=== PATIENT | female | born 1970 | race Caucasian/White ===

== ENCOUNTER 2018-07-16 14:07 | Emergency (ER) | payer OTHER ==
[2018-07-16 14:22] VITALS: BP 139/83; PULSE 78; TEMP 99.5; BMI 19.1
[2018-07-16] MEDS ORDERED: SODIUM CHLORIDE 0.9% 1000 ML INFUS.BAG IV ONE (14:34)
--- NOTE | 2018-07-16 14:51 | PDOC ---
History of Present Illness - General Chief Complaint: Pain, Acute Stated Complaint: PCP SENT Time Seen by Provider: 07/16/18 14:34 History Source: Patient Exam Limitations: No Limitations - History of Present Illness Initial Comments: 07/16/18 14:44 This is a 48 YOF with h/o right ovarian cyst, anxiety, and prior anorexia (has maintained healthy weight for many years) who p/w non-radiating 8/10 lower RLQ pressure/sharp pain, urinary urgency, low-grade fever, and night sweats worsening over the past 2 months. She notes seeing Dr. Chong a week ago and having a UA which did show some bacteria, and she was treated with ciprofloxacin without relief. She notes that the pain worsened significantly today and Dr. Chong instructed her to come into the ED for evaluation, CT abdomen/pelvis, and r/o appendicitis. The patient denies any recent chills, nausea, vomiting, diarrhea, constipation, black/bloody/white stool, headache, vertigo, lightheadedness, chest pain, SOB, back pain, leg pain, burning on urination, vaginal bleeding, or other symptoms. She is having her menstrual period and this is nothing like menstrual cramps. Past History - Past Medical History Allergies/Adverse Reactions: Allergies Allergy/AdvReac Type Severity Reaction Status Date / Time No Known Allergies Allergy Verified 07/16/18 14:29 Home Medications: Ambulatory Orders Aspirin 81 mg PO DAILY 07/16/18 Atorvastatin Ca [Lipitor] 20 mg PO HS 07/16/18 Fluoxetine HCl [Prozac] 40 mg PO DAILY 07/16/18 Lamotrigine [Lamictal] 125 mg PO DAILY 07/16/18 levoFLOXacin [Levaquin] 750 mg PO DAILY #7 tab 07/16/18 metroNIDAZOLE [Flagyl -] 500 mg PO TID #21 tablet 07/16/18 COPD: No - Immunization History Immunization Up to Date: Yes - Suicide/Smoking/Psychosocial Hx Smoking History: Never smoked Hx Alcohol Use: Yes Drug/Substance Use Hx: No Review of Systems - Review of Systems Able to Perform ROS?: Yes Constitutional: Yes: Fever (low-grade), Night Sweats. No: Chills, Unexplained wgt Loss HEENTM: No: Nose Congestion, Throat Pain Respiratory: No: Cough, Shortness of Breath Cardiac (ROS): No: Chest Pain, Palpitations ABD/GI: Yes: Other (right lower abdominal pain). No: Constipated, Diarrhea, Nausea, Vomiting : No: Burning, Dysuria Musculoskeletal: No: Back Pain, Neck Pain Integumentary: No: Bruising, Rash Neurological: No: Headache, Numbness, Tingling, Weakness, Dizziness Endocrine: No: Unexplained Weight Gain, Unexplained Weight Loss *Physical Exam - Vital Signs Last Vital Signs Temp Pulse Resp BP Pulse Ox 99.5 F 78 18 139/83 89 L 07/16/18 14:11 07/16/18 14:11 07/16/18 14:11 07/16/18 14:11 07/16/18 14:11 ED Treatment Course - LABORATORY CBC & Chemistry Diagram: 07/16/18 15:10 07/16/18 15:10 Medical Decision Making - Medical Decision Making 07/16/18 14:54 Adult female Pt p/w RLQ pain. Initial Vital Signs Temp Pulse Resp BP Pulse Ox 99.5 F 78 18 139/83 89 L 07/16/18 14:11 07/16/18 14:11 07/16/18 14:11 07/16/18 14:11 07/16/18 14:11 Exam: As noted in Physical Exam section. DDX IBNLT: ovarian cyst, ovarian torsion, appendicitis, UTI/pyelonephritis, renal colic, salpingitis, oophoritis, PID, TOA, endometritis, Zljp-Klqg-Rilwrb syndrome (if involving liver capsule ACS, AAA/AD, malignancy, hernia, cholecystitis, pancreatitis, gastritis, PUD, diverticulitis wwo abscess or perforation, colitis, regional ileitis (Crohns disease), SBO, bowel ischemia, bowel perforation, constipation, musculoskeletal, primary dysmenorrhea, endometriosis, fibroids, etc. 07/16/18 14:54 CT abdomen/pelvis with PO contrast, TVUS, labs as noted below TX ordered: IVF Laboratory Tests 07/16/18 07/16/18 07/16/18 15:10 15:10 15:10 WBC 10.3 H RBC 4.49 Hgb 13.6 Hct 40.0 MCV 89.1 MCH 30.2 MCHC 33.9 RDW 13.9 Plt Count 352 MPV 7.3 L Absolute Neuts (auto) 6.8 Neutrophils % 65.7 Lymphocytes % 24.0 Monocytes % 7.6 Eosinophils % 2.1 Basophils % 0.6 Nucleated RBC % 0 Sodium 140 Potassium 4.0 Chloride 110 H Carbon Dioxide 24 Anion Gap 7 L BUN 9 Creatinine 0.7 Creat Clearance w eGFR > 60 Random Glucose 85 Calcium 9.0 Total Bilirubin 0.3 AST 26 ALT 27 Alkaline Phosphatase 53 Total Protein 6.4 Albumin 3.4 Lipase 227 Urine Color Azra Urine Appearance Clear Urine pH 5.0 Ur Specific [place] 1.015 Urine Protein Negative Urine Glucose (UA) Negative Urine Ketones Negative Urine Blood Negative Urine Nitrite Positive Urine Bilirubin Negative Urine Urobilinogen 4.0 e.u/dl H Ur Leukocyte Esterase Negative Urine WBC (Auto) <1 Urine RBC (Auto) 1 Ur Epithelial Cells Few Urine Mucus Rare 07/16/18 15:38 WBC RBC Hgb Hct MCV MCH MCHC RDW Plt Count MPV Absolute Neuts (auto) Neutrophils % Lymphocytes % Monocytes % Eosinophils % Basophils % Nucleated RBC % Sodium Potassium Chloride Carbon Dioxide Anion Gap BUN Creatinine Creat Clearance w eGFR Random Glucose Calcium Total Bilirubin AST ALT Alkaline Phosphatase Total Protein Albumin Lipase Cancelled Urine Color Urine Appearance Urine pH Ur Specific [place] Urine Protein Urine Glucose (UA) Urine Ketones Urine Blood Urine Nitrite Urine Bilirubin Urine Urobilinogen Ur Leukocyte Esterase Urine WBC (Auto) Urine RBC (Auto) Ur Epithelial Cells Urine Mucus Reassessment: Patient states feeling a bit better, repeat exam benign. Repeat VS: 07/16/18 19:00 This patient has gotten significant relief of symptoms while in the ED. On last reassessment, vitals are wnl, pain is reasonably controlled, and exam is benign. Workup is not concerning for emergency-level pathology at this time. This patient is appropriate for discharge with close outpatient follow up. The Pt is comfortable with this plan and will follow up with their primary care provider in 1-3 days. She will take Motrin and/or Tylenol for pain. Specific return precautions are discussed and they will come back to the ER if necessary. *DC/Admit/Observation/Transfer Diagnosis at time of Disposition: Colitis Ovarian cyst Qualifiers: Laterality: right Qualified Code(s): N83.201 - Unspecified ovarian cyst, right side Abdominal pain Qualifiers: Abdominal location: right lower quadrant Qualified Code(s): R10.31 - Right lower quadrant pain - Discharge Dispostion Disposition: HOME Condition at time of disposition: Stable Decision to Admit order: No - Prescriptions Prescriptions: levoFLOXacin [Levaquin] 750 mg PO DAILY #7 tab metroNIDAZOLE [Flagyl -] 500 mg PO TID #21 tablet - Referrals Referrals: Rojas Chong MD [Primary Care Provider] - - Patient Instructions Additional Instructions: YOU WERE SEEN IN THE ER FOR ABDOMINAL PAIN. WE DID AN EXAM, LABS, AN ULTRASOUND , AND A CT SCAN, AND WE FOUND EVIDENCE OF AN OVARIAN CYST AND OF COLON INFLAMMATION AFTER OUR ASSESSMENT, WE DO NOT BELIEVE YOU ARE HAVING A MEDICAL EMERGENCY AT THIS TIME, AND WE BELIEVE YOU ARE SAFE TO GO HOME. PLEASE FOLLOW UP WITH YOUR REGULAR PCP IN 1-3 DAYS. CALL THEIR CLINIC, TELL THEM YOU WERE SEEN IN THE ER, AND TELL THEM YOU NEED A FOLLOW-UP. IF YOU HAVE ANY NEW OR WORSENING SYMPTOMS, ESPECIALLY FEVER, WORSENING PAIN, RECTAL BLEEDING, ABDOMINAL DISTENTION, ETC, PLEASE COME BACK TO THE ER AT ANY TIME (24 HOURS A DAY). IF YOU ARE HAVING SEVERE OR LIFE THREATENING SYMPTOMS, OR SYMPTOMS THAT MAKE IT UNSAFE TO DRIVE OR HAVE SOMEONE DRIVE YOU, PLEASE CALL 911. FOLLOW UP WITH YOUR GI DOCTOR AND YOUR ENROLLMENT REPRESENTATIVE DOCTOR SCHEDULED WELL. DENTAL LABORATORY MANAGER AND TAKE THE ANTIBIOTIC PRESCRIPTIONS WE ARE SENDING TO YOUR PHARMACY. TAKE THE WHOLE COURSES OF ANTIBIOTICS CONCURRENTLY DIRECTED. COMPLETE THE ANTIBIOTIC COURSES WHETHER OR NOT YOU START TO FEEL BETTER. - Post Discharge Activity
[2018-07-16 16:36] LABS: URINE APPEARANCE CLEAR; URINE BILIRUBIN NEGATIVE (<2.0 mg/dL); URINE COLOR AMBER; URINE GLUCOSE (UA) NEGATIVE (NEGATIVE); URINE KETONE NEGATIVE (NEGATIVE); URINE LEUK ESTERASE NEGATIVE (NEGATIVE); URINE NITRITE POSITIVE (NEGATIVE); URINE PROTEIN NEGATIVE (NEGATIVE); URINE UROBILINOGEN 4.0 E.U/dl mg/dL (0.2-1.0)
[2018-07-16 16:39] LABS: ALBUMIN 3.4 g/dl (3.4-5.0); ALK PHOS 53 U/L (45-117); ANION GAP 7 MMOL/L (8-16); BILIRUBIN,TOTAL 0.3 mg/dL (0.2-1); BLOOD UREA NITROGEN 9 mg/dL (7-18); CHLORIDE 110 mmol/L (98-107); CO2 24 mmol/L (21-32); CREATININE 0.7 mg/dL (0.55-1.3); GLUCOSE,RANDOM 85 mg/dL (74-106); SGOT/AST 26 U/L (15-37); SGPT/ALT 27 U/L (13-61); SODIUM 140 mmol/L (136-145); TOT PROT 6.4 g/dl (6.4-8.2)
--- NOTE | 2018-07-16 16:47 | PDOC ---
*Physical Exam - Vital Signs Last Vital Signs Temp Pulse Resp BP Pulse Ox 99.5 F 78 18 139/83 89 L 07/16/18 14:11 07/16/18 14:11 07/16/18 14:11 07/16/18 14:11 07/16/18 14:11 - Physical Exam Comments: 07/16/18 18:55 gen: awake, alert heart: +s1s2 reg lungs: cta b/l abd: soft, RLQ and suprapubic ttp, no rebound or guarding ext: no c/c/e ED Treatment Course - LABORATORY CBC & Chemistry Diagram: 07/16/18 15:10 07/16/18 15:10 - ADDITIONAL ORDERS Additional order review: Laboratory Results 07/16/18 15:10 Sodium 140 Potassium 4.0 Chloride 110 H Carbon Dioxide 24 Anion Gap 7 L BUN 9 Creatinine 0.7 Creat Clearance w eGFR > 60 Random Glucose 85 Calcium 9.0 Total Bilirubin 0.3 AST 26 ALT 27 Alkaline Phosphatase 53 Total Protein 6.4 Albumin 3.4 - Medications Given in the ED: ED Medications Discontinued Medications Generic Name Dose Route Start Last Admin Trade Name Freq PRN Reason Stop Dose Admin Sodium Chloride 1,000 ml 07/16/18 14:34 07/16/18 15:26 Normal Saline - IV 07/16/18 14:35 1,000 ml ONCE ONE Administration Medical Decision Making - Medical Decision Making 07/16/18 18:56 a/p: 48yo female with 2 months of intermittent RLQ pain -pt signed out by the prior attending pt with mild rlq ttp -pt with hemorrhagic ovarian cyst on R - discussed with the patient - she has an appt with [facility] for Jul 27 -pt with sigmoid colitis - no fevers or chills - will start cipro/flagyl pt has appt with Dr. Kiran her monotype operator for august 05 pt states she had a bm after the ct scan was performed pt stable for d/c to home for outpt follow up and further eval will dc with abx *DC/Admit/Observation/Transfer Diagnosis at time of Disposition: Colitis Ovarian cyst Qualifiers: Laterality: right Qualified Code(s): N83.201 - Unspecified ovarian cyst, right side Abdominal pain Qualifiers: Abdominal location: right lower quadrant Qualified Code(s): R10.31 - Right lower quadrant pain - Discharge Dispostion Disposition: HOME Condition at time of disposition: Stable Decision to Admit order: No - Referrals Referrals: Rojas Chong MD [Primary Care Provider] - - Patient Instructions Additional Instructions: YOU WERE SEEN IN THE ER FOR ABDOMINAL PAIN. WE DID AN EXAM, LABS, AN ULTRASOUND , AND A CT SCAN, AND WE FOUND EVIDENCE OF AN OVARIAN CYST AND OF COLON INFLAMMATION AFTER OUR ASSESSMENT, WE DO NOT BELIEVE YOU ARE HAVING A MEDICAL EMERGENCY AT THIS TIME, AND WE BELIEVE YOU ARE SAFE TO GO HOME. PLEASE FOLLOW UP WITH YOUR REGULAR PCP IN 1-3 DAYS. CALL THEIR CLINIC, TELL THEM YOU WERE SEEN IN THE ER, AND TELL THEM YOU NEED A FOLLOW-UP. IF YOU HAVE ANY NEW OR WORSENING SYMPTOMS, PLEASE COME BACK TO THE ER AT ANY TIME (24 HOURS A DAY). IF YOU ARE HAVING SEVERE OR LIFE THREATENING SYMPTOMS, OR SYMPTOMS THAT MAKE IT UNSAFE TO DRIVE OR HAVE SOMEONE DRIVE YOU, PLEASE CALL 911. - Post Discharge Activity - Attestations Physician Attestion: 07/16/18 18:58 I, Dr. Skye Mao, DO, attest that this document has been prepared under my direction and personally reviewed by me in its entirety. I further attest, that it accurately reflects all work, treatment, procedures and medical decision -making performed by me.
[2018-07-16 17:05] LABS: BASO % 0.6 % (0-2.0); EOS % 2.1 % (0-4.5); HEMOGLOBIN 13.6 GM/dL (10.7-15.3); MCH 30.2 pg (25.7-33.7); MCHC 33.9 g/dl (32.0-36.0); MEAN CELL VOLUME 89.1 fl (80-96); MEAN PLT VOLUME 7.3 fl (7.5-11.1); MONO % 7.6 % (3.8-10.2); NEUT % 65.7 % (42.8-82.8); PLATELET COUNT 352 K/MM3 (134-434); RBC 4.49 M/mm3 (3.60-5.2); RDW 13.9 % (11.6-15.6); WHITE BLOOD COUNT 10.3 K/mm3 (4.0-10.0)
[2018-07-16 17:11] LABS: EPI CELLS FEW /HPF (FEW); URINE MUCUS RARE
[2018-07-16 17:31] LABS: LIPASE 227 U/L (73-393)
[2018-07-16] MEDS ORDERED: metroNIDAZOLE 250 MG TABLET PO ONE (18:53)
[2018-07-16] MEDS ORDERED: metroNIDAZOLE 250 MG TABLET ONE (19:08)
--- NOTE | 2018-07-16 20:52 | PDOC ---
Attending Attestation - Resident Resident Name: López,Elizabeth - ED Attending Attestation I have performed the following: The case was reviewed & discussed with the resident, I agree w/resident's findings & plan, Exceptions are as noted - HPI HPI: 07/16/18 20:47 48 yoF with ho ovarian cyst here today co lower abd pain. she has had intermittent pain for months. pt was seen today by her pcp dr. liang, and sent for evaluation of pain. pt states feels similar to her prior hemorrhagic cyst. no f/c no n/v no change to bm. - Physicial Exam PE: 07/16/18 20:48 awake alert NAD gait normal speech clear. - Medical Decision Making 07/16/18 20:49 differential diagnosis uti, pyelo, appendicits, ovarian cyst . torsions, plan ct a/p due to h.o ovarian cyst pt will also reauire us tv evluate the rigt ovaries. pt case discussed with the resident, agree with her assessment and plan. singed out to oncoming attending dr. acuna. 07/16/18 20:50
== END 2018-07-16 19:17 | disposition home or self-care (01) ==
LOC: JER 14:07
DX: K52.9 Noninfective gastroenteritis and colitis, unspecified (principal)
CPT/HCPCS: 36415; 74177-TC; 76830-TC; 80053; 81003; 81015; 83690; 85025; 99284-25; J7030

== ENCOUNTER 2023-01-10 16:37 | Observation (INO) | payer OTHER ==
[2023-01-10] MEDS ORDERED: SODIUM CHLORIDE 1,000 ML IV STA (17:13)
[2023-01-10 17:14] VITALS: BMI 23.4
[2023-01-10 18:09] LABS: VENOUS BASE EXCESS 0.5 mmol/L (-2-2); VENOUS PCO2 53.1 mmHg (38-52); VENOUS PH 7.328 (7.310-7.410)
[2023-01-10] MEDS ORDERED: LACTATED RINGERS SOLUTION 1000 ML INFUS.BAG IV ONE (18:09)
[2023-01-10 18:11] LABS: BASO % 0.8 % (0-2.0); EOS % 9.1 % (0-4.5); HEMATOCRIT 34.9 % (32.4-45.2); HEMOGLOBIN 11.9 GM/dL (10.7-15.3); LYMPH % 20.3 % (8-40); MCH 29.5 pg (25.7-33.7); MCHC 34.2 g/dl (32.0-36.0); MEAN CELL VOLUME 86.4 fl (80-96); MEAN PLT VOLUME 6.6 fl (7.5-11.1); MONO % 5.6 % (3.8-10.2); NEUT % 64.2 % (42.8-82.8); PLATELET COUNT 326 10^3/uL (134-434); RBC 4.04 M/mm3 (3.60-5.2); RDW 13.3 % (11.6-15.6)
[2023-01-10 18:24] LABS: INR 1.03 (0.83-1.09); PROTHROMBIN TIME (PATIENT) 11.9 SEC (9.7-13.0)
[2023-01-10 18:26] LABS: ACTIVATED PTT 28.8 SECONDS (25.2-36.5)
[2023-01-10 18:36] LABS: CHLORIDE 107 mmol/L (98-107); SODIUM 139 mmol/L (136-145)
[2023-01-10 18:40] LABS: ALBUMIN 2.7 g/dl (3.4-5.0); ANION GAP 4 MMOL/L (8-16); BLOOD UREA NITROGEN 11.1 mg/dL (7-18); CALCIUM 8.6 mg/dL (8.5-10.1); CO2 28 mmol/L (21-32); GLUCOSE,RANDOM 113 mg/dL (74-106)
[2023-01-10 18:43] LABS: CREATININE 0.7 mg/dL (0.55-1.3); SGOT/AST 36 U/L (15-37); SGPT/ALT 35 U/L (13-61)
[2023-01-10 18:45] LABS: BILIRUBIN,TOTAL 0.4 mg/dL (0.2-1); TOT PROT 4.9 g/dl (6.4-8.2)
[2023-01-10 18:46] LABS: ALK PHOS 58 U/L (45-117)
[2023-01-10] MEDS ORDERED: MAGNESIUM SULF 50% (8.12 MEQ/2 ML-1 GM VIAL) IVPB ONE (19:04)
[2023-01-10] MEDS ORDERED: POTASSIUM CHLORIDE ORAL LIQUID 20 MEQ/15 ML PO ONE (20:41)
[2023-01-10] MEDS ORDERED: POTASSIUM CHLORIDE ORAL LIQUID 20 MEQ/15 ML ONE (21:44)
[2023-01-10] MEDS ORDERED: MAGNESIUM SULFATE IN WATER 2 GM/50 ML IVPB IVPB ONE (21:44)
[2023-01-11 06:51] LABS: HEMATOCRIT 32.1 % (32.4-45.2); HEMOGLOBIN 11.5 GM/dL (10.7-15.3); MCH 30.5 pg (25.7-33.7); MCHC 35.6 g/dl (32.0-36.0); MEAN CELL VOLUME 85.7 fl (80-96); MEAN PLT VOLUME 6.2 fl (7.5-11.1); PLATELET COUNT 284 10^3/uL (134-434); RBC 3.75 M/mm3 (3.60-5.2); RDW 13.2 % (11.6-15.6); WHITE BLOOD COUNT 7.3 K/mm3 (4.0-10.0)
[2023-01-11 07:14] LABS: CALCIUM 9.1 mg/dL (8.5-10.1)
[2023-01-11 07:15] LABS: BLOOD UREA NITROGEN 9.5 mg/dL (7-18)
[2023-01-11 07:16] LABS: MAGNESIUM 2.2 mg/dL (1.8-2.4)
[2023-01-11 07:19] LABS: CREATININE 0.6 mg/dL (0.55-1.3)
[2023-01-11] MEDS ORDERED: D5-1/2NS+40 MEQ KCL - 40 MEQ/1,000 ML INFUS.BAG IV SCH (08:15)
[2023-01-11] MEDS ORDERED: KCL 10 MEQ IVPB 10 MEQ/100 ML INFUS.BAG IVPB SCH (08:45)
[2023-01-11] MEDS ORDERED: POTASSIUM CHLORIDE TABS 20 MEQ TABLET.ER (FP) PO ONE (08:47)
[2023-01-11] MEDS ORDERED: KCL 10 MEQ IVPB 10 MEQ/100 ML INFUS.BAG IVPB ONE (08:48)
[2023-01-11] MEDS ORDERED: POTASSIUM CHLORIDE TABS 20 MEQ TABLET.ER (FP) PO SCH (10:00)
[2023-01-11 15:34] VITALS: RESP 17; TEMP 98.1
[2023-01-11 17:34] VITALS: BP 143/83; PULSE 97
== END 2023-01-11 17:38 | disposition home or self-care (01) ==
LOC: JER 16:37 → JERBED 22:40
PROVIDERS: ADMIT Internal Medicine; ATTEND Family Medicine
PROC: 3E033GC Introduction of Other Therapeutic Substance into Peripheral Vein, Percutaneous Approach (ICD-10-PCS; principal; 2023-01-10)
PROC: 3E0337Z Introduction of Electrolytic and Water Balance Substance into Peripheral Vein, Percutaneous Approach (ICD-10-PCS; 2023-01-10)
PROC: 3E033GC Introduction of Other Therapeutic Substance into Peripheral Vein, Percutaneous Approach (ICD-10-PCS; 2023-01-10)
DX: T43.221A Poisoning by selective serotonin reuptake inhibitors, accidental (unintentional), initial encounter (principal); E87.6 Hypokalemia; Z29.8 Encounter for other specified prophylactic measures; Y99.8 Other external cause status
CPT/HCPCS: 36415; 70450-TC; 71045-TC-FY; 72125-TC; 80048; 80053; 80178; 80307; 82803; 83605; 83735; 84484; 85025; 85027; 85610; 85730; 86850; 86900; 86901; 93005; 93010; 96361; 96365; 96367; 96375; 99291; C9803-CS; G0378; U0003; U0005

== ENCOUNTER 2023-09-04 09:54 | Inpatient (IN) | payer OTHER ==
[2023-09-04 10:52] LABS: HEMATOCRIT 36.1 % (32.4-45.2); HEMOGLOBIN 12.4 GM/dL (10.7-15.3); MCH 29.4 pg (25.7-33.7); MCHC 34.3 g/dl (32.0-36.0); MEAN CELL VOLUME 85.7 fl (80-96); MEAN PLT VOLUME 7.1 fl (7.5-11.1); PLATELET COUNT 229 10^3/uL (134-434); RBC 4.21 M/mm3 (3.60-5.2); RDW 13.6 % (11.6-15.6); WHITE BLOOD COUNT 4.8 K/mm3 (4.0-10.0)
[2023-09-04] MEDS ORDERED: SODIUM CHLORIDE 0.9% 500 ML INFUS.BAG IV ONE (11:08)
[2023-09-04 11:18] LABS: CHLORIDE 99 mmol/L (98-107); SODIUM 133 mmol/L (136-145)
[2023-09-04 11:20] LABS: BLOOD UREA NITROGEN 26.7 mg/dL (7-18); CALCIUM 8.1 mg/dL (8.5-10.1); CO2 22 mmol/L (21-32); GLUCOSE,RANDOM 74 mg/dL (74-106)
[2023-09-04 11:21] LABS: ALBUMIN 1.6 g/dl (3.4-5.0)
[2023-09-04 11:23] LABS: SGPT/ALT 21 U/L (13-61)
[2023-09-04 11:24] LABS: SGOT/AST 35 U/L (15-37)
[2023-09-04 11:25] LABS: BILIRUBIN,TOTAL 0.4 mg/dL (0.2-1); TOT PROT 4.7 g/dl (6.4-8.2)
[2023-09-04 11:26] LABS: ALK PHOS 94 U/L (45-117); ANION GAP 12 mmol/L (4-13); POTASSIUM 2.3 mmol/L (3.5-5.1)
[2023-09-04] MEDS ORDERED: POTASSIUM CHLORIDE TABS 20 MEQ TABLET.ER (FP) PO ONE ×2 (11:30→11:58)
[2023-09-04] MEDS ORDERED: AZITHROMYCIN IVPB 500 MG in DEXTROSE 5%-WATER - 250 ML IVPB ONE (11:44)
[2023-09-04] MEDS ORDERED: CEFTRIAXONE 1,000 MG in DEXTROSE 5%-WATER - 50 ML IVPB ONE (11:45)
[2023-09-04] MEDS ORDERED: ASPIRIN 81 MG CHEWABLE TABLETS PO ONE (11:52)
[2023-09-04] MEDS ORDERED: PIPERACILLIN/TAZOBACTAM 4.5 GM VIAL IVPB ONE (11:55)
[2023-09-04] MEDS ORDERED: VANCOMYCIN 1,000 MG in DEXTROSE 5%-WATER - 250 ML IVPB ONE (11:55)
[2023-09-04] MEDS ORDERED: ASPIRIN 81 MG CHEWABLE TABLETS ONE (11:58)
[2023-09-04] MEDS: KCL 10 MEQ IVPB 10 MEQ/100 ML INFUS.BAG IVPB SCH ×4 (12:15→21:49)
[2023-09-04] MEDS ORDERED: PIPERACILLIN/TAZOB 4.5 GM 4.5 GM/100 ML BAG IVPB ONE (12:46)
[2023-09-04] MEDS ORDERED: VANCOMYCIN 1 GRAM (PRE-DOCKED) 1,000 MG/250 ML BAG IVPB ONE (12:46)
[2023-09-04 13:32] LABS: ANISOCYTOSIS 0; MACROCYTOSIS 0
[2023-09-04] MEDS ORDERED: KCL 10 MEQ IVPB 10 MEQ/100 ML INFUS.BAG IVPB ONE ×2 (14:11→16:23)
[2023-09-04 16:03] LABS: URINE APPEARANCE CLOUDY; URINE BILIRUBIN NEGATIVE (NEGATIVE); URINE COLOR YELLOW; URINE GLUCOSE (UA) NEGATIVE (NEGATIVE); URINE KETONE NEGATIVE (NEGATIVE); URINE LEUK ESTERASE NEGATIVE (NEGATIVE); URINE NITRITE NEGATIVE (NEGATIVE); URINE PROTEIN 2+ (NEGATIVE); URINE UROBILINOGEN 0.2 mg/dL (0.2-1.0)
[2023-09-04] MEDS ORDERED: ACETAMINOPHEN 1000 MG/100 ML BAG IVPB ONE (16:31)
[2023-09-04] MEDS ORDERED: ACETAMINOPHEN 325 MG TABLET (FP) PO PRN (16:44)
[2023-09-04] MEDS ORDERED: ALPRAZolam 0.25 MG TABLET ONE (18:15)
[2023-09-04] MEDS ORDERED: ACETAMINOPHEN INJECTION 100 ML IVPB ONE (18:15)
[2023-09-04] MEDS ORDERED: DEXTROSE 5%-0.45% SALINE 1,000 ML IV SCH (18:15)
[2023-09-04] MEDS: ALPRAZolam 1 MG TABLET PO PRN (18:24)
[2023-09-04 20:06] LABS: EPI CELLS 45 /uL (0-25.1); HYALINE CASTS 1.29 /uL (0-3.1); URINE BACTERIA 5.8 /uL (0-1359); URINE RBC 29.2 /uL (0-23.9); URINE WBC 40.5 /uL (0-25.8)
[2023-09-04] MEDS: ATORVASTATIN CA 20 MG TABLET (FP) PO SCH (22:06)
[2023-09-04] MEDS: OSELTAMIVIR PHOSPHATE 75 MG CAPSULE PO SCH (22:06)
[2023-09-05] MEDS: CEFTRIAXONE 1 GM in DEXTROSE 5%-WATER - 50 ML IVPB SCH (09:24)
[2023-09-05] MEDS: OSELTAMIVIR PHOSPHATE 75 MG CAPSULE PO SCH ×2 (09:28→21:44)
[2023-09-05] MEDS ORDERED: AZITHROMYCIN IVPB 500 MG/250 ML BAG IVPB SCH (10:00)
[2023-09-05 11:12] LABS: CHLORIDE 100 mmol/L (98-107); SODIUM 132 mmol/L (136-145)
[2023-09-05 11:17] LABS: ALBUMIN 1.4 g/dl (3.4-5.0); BLOOD UREA NITROGEN 14.2 mg/dL (7-18); CALCIUM 8.3 mg/dL (8.5-10.1); CO2 22 mmol/L (21-32); GLUCOSE,RANDOM 109 mg/dL (74-106)
[2023-09-05 11:20] LABS: CREATININE 0.6 mg/dL (0.55-1.3); SGOT/AST 24 U/L (15-37); SGPT/ALT 18 U/L (13-61)
[2023-09-05 11:22] LABS: BILIRUBIN,TOTAL 0.7 mg/dL (0.2-1); TOT PROT 4.5 g/dl (6.4-8.2)
[2023-09-05 11:23] LABS: ALK PHOS 83 U/L (45-117)
[2023-09-05 11:24] LABS: ANION GAP 10 mmol/L (4-13); POTASSIUM 2.7 mmol/L (3.5-5.1)
[2023-09-05] MEDS: KCL 10 MEQ IVPB 10 MEQ/100 ML INFUS.BAG IVPB SCH ×4 (12:19→19:43)
[2023-09-05] MEDS ORDERED: POTASSIUM CHLORIDE ORAL LIQUID 20 MEQ/15 ML PO ONE ×2 (12:30→20:00)
[2023-09-05 12:50] LABS: HEMATOCRIT 35.7 % (32.4-45.2); MCH 29.2 pg (25.7-33.7); MCHC 33.7 g/dl (32.0-36.0); MEAN CELL VOLUME 86.7 fl (80-96); PLATELET COUNT 219 10^3/uL (134-434); RBC 4.12 M/mm3 (3.60-5.2); RDW 13.9 % (11.6-15.6); WHITE BLOOD COUNT 10.2 K/mm3 (4.0-10.0)
[2023-09-05] MEDS: ALPRAZolam 1 MG TABLET PO PRN (14:20)
[2023-09-05 14:44] LABS: ANISOCYTOSIS 0; HELMET CELLS 0; HOWELL-JOLLY BODIES 0; MACROCYTOSIS 0; OVALOCYTE 0; ROULEAU 0; SICKELED CELLS 0; TARGET CELLS 0; TEAR DROP CELLS 0; TOXIC GRANULATION 0
[2023-09-05] MEDS ORDERED: DEXTROSE 5%-0.45% SALINE 1,000 ML with POTASSIUM CHLORIDE 20 MEQ IV SCH (16:16)
[2023-09-05] MEDS ORDERED: MAGNESIUM OXIDE 400 MG TABLET (FP) PO ONE (16:17)
[2023-09-05] MEDS: SODIUM CHLORIDE 0.9%/KCL 20 MEQ/1,000 ML INFUS.BAG IV SCH (16:51)
[2023-09-05] MEDS ORDERED: ALBUTEROL SO4 2.5/IPRATROPIUM 0.5 INH SOL 3 ML VIAL.NEB. NEB PRN (20:18)
[2023-09-05] MEDS ORDERED: ALPRAZolam 0.25 MG TABLET PO PRN (20:30)
[2023-09-05] MEDS: PANTOPRAZOLE 40 MG TABLET PO SCH (20:32)
[2023-09-05] MEDS: ATORVASTATIN CA 20 MG TABLET (FP) PO SCH (21:44)
[2023-09-05] MEDS ORDERED: ALPRAZolam 0.25 MG TABLET PO ONE (22:38)
[2023-09-06] MEDS ORDERED: FLUMAZENIL 0.5 MG/5 ML VIAL IVPUSH ONE (05:46)
[2023-09-06] MEDS ORDERED: RAPID SEQUENCE INTUBATION KIT NR ONE (05:57)
[2023-09-06 06:07] LABS: ARTERIAL BLD GAS O2 SATURATION 99.2 % (95-98); ARTERIAL BLOOD GAS BASE EXCESS -8.1 mmol/L (-2-2); ARTERIAL BLOOD GAS PO2 216.9 mmHg (80-100); ARTERIAL BLOOD GAS pH 7.219 (7.350-7.450)
[2023-09-06] MEDS ORDERED: FUROSEMIDE 40 MG/4 ML INJECTABLE VIAL IVPUSH ONE (06:08)
[2023-09-06 06:10] LABS: ALLENS TEST NEGATIVE
[2023-09-06 07:25] LABS: MAGNESIUM 1.4 mg/dL (1.8-2.4)
[2023-09-06] MEDS: ALBUTEROL SO4 2.5/IPRATROPIUM 0.5 INH SOL 3 ML VIAL.NEB. NEB SCH ×4 (07:40→20:05)
[2023-09-06 07:51] LABS: HEMATOCRIT 37.1 % (32.4-45.2); HEMOGLOBIN 12.3 GM/dL (10.7-15.3); MCH 28.8 pg (25.7-33.7); MCHC 33.2 g/dl (32.0-36.0); MEAN CELL VOLUME 86.9 fl (80-96); MEAN PLT VOLUME 7.9 fl (7.5-11.1); PLATELET COUNT 217 10^3/uL (134-434); RBC 4.27 M/mm3 (3.60-5.2); RDW 14.7 % (11.6-15.6); WHITE BLOOD COUNT 14.8 K/mm3 (4.0-10.0)
[2023-09-06 08:02] LABS: POTASSIUM 4.2 mmol/L (3.5-5.1)
[2023-09-06 08:11] LABS: ALBUMIN 1.4 g/dl (3.4-5.0); BLOOD UREA NITROGEN 9.9 mg/dL (7-18); CALCIUM 9.1 mg/dL (8.5-10.1); MAGNESIUM 1.5 mg/dL (1.8-2.4)
[2023-09-06 08:14] LABS: CREATININE 0.4 mg/dL (0.55-1.3)
[2023-09-06 08:16] LABS: BILIRUBIN,TOTAL 0.3 mg/dL (0.2-1); TOT PROT 4.7 g/dl (6.4-8.2)
[2023-09-06 09:09] LABS: ANISOCYTOSIS 1+; MACROCYTOSIS 1+; TOXIC GRANULATION 1+
[2023-09-06] MEDS: PANTOPRAZOLE 40 MG TABLET PO SCH (10:24)
[2023-09-06] MEDS: CEFTRIAXONE 1 GM in DEXTROSE 5%-WATER - 50 ML IVPB SCH (10:25)
[2023-09-06] MEDS: OSELTAMIVIR PHOSPHATE 75 MG CAPSULE PO SCH ×2 (10:25→21:14)
[2023-09-06] MEDS ORDERED: MAGNESIUM SULFATE IN WATER 2 GM/50 ML IVPB IVPB ONE (12:35)
[2023-09-06 14:59] VITALS: BMI 19.1
[2023-09-06] MEDS: PIPERACILLIN/TAZOB 3.375 GM 3.375 GM in DEXTROSE 5%-WATER - 50 ML IVPB SCH (20:31)
[2023-09-06] MEDS: ATORVASTATIN CA 20 MG TABLET (FP) PO SCH (21:14)
[2023-09-07] MEDS: PIPERACILLIN/TAZOB 3.375 GM 3.375 GM in DEXTROSE 5%-WATER - 50 ML IVPB SCH ×3 (02:19→17:19)
[2023-09-07] MEDS: ALBUTEROL SO4 2.5/IPRATROPIUM 0.5 INH SOL 3 ML VIAL.NEB. NEB SCH ×3 (07:50→15:15)
[2023-09-07 07:51] LABS: HEMATOCRIT 36.1 % (32.4-45.2); HEMOGLOBIN 12.2 GM/dL (10.7-15.3); MCH 29.2 pg (25.7-33.7); MCHC 33.8 g/dl (32.0-36.0); MEAN CELL VOLUME 86.4 fl (80-96); MEAN PLT VOLUME 7.5 fl (7.5-11.1); PLATELET COUNT 230 10^3/uL (134-434); RBC 4.18 M/mm3 (3.60-5.2); RDW 14.1 % (11.6-15.6)
[2023-09-07 08:02] LABS: POTASSIUM 3.2 mmol/L (3.5-5.1)
[2023-09-07 08:09] LABS: ALBUMIN 1.2 g/dl (3.4-5.0); BLOOD UREA NITROGEN 11.6 mg/dL (7-18)
[2023-09-07 08:12] LABS: CREATININE 0.3 mg/dL (0.55-1.3)
[2023-09-07 08:14] LABS: BILIRUBIN,TOTAL 1.1 mg/dL (0.2-1); TOT PROT 4.6 g/dl (6.4-8.2)
[2023-09-07 08:59] LABS: ANISOCYTOSIS 1+; MACROCYTOSIS 0
[2023-09-07] MEDS: PANTOPRAZOLE 40 MG TABLET PO SCH (10:06)
[2023-09-07] MEDS: OSELTAMIVIR PHOSPHATE 75 MG CAPSULE PO SCH ×2 (10:06→21:53)
[2023-09-07 13:45] LABS: MAGNESIUM 1.5 mg/dL (1.8-2.4)
[2023-09-07] MEDS: SODIUM CHLORIDE 0.9%/KCL 20 MEQ/1,000 ML INFUS.BAG IV SCH (18:53)
[2023-09-07] MEDS ORDERED: POTASSIUM CHLORIDE ORAL LIQUID 20 MEQ/15 ML PO ONE (19:10)
[2023-09-07] MEDS ORDERED: FUROSEMIDE 40 MG/4 ML INJECTABLE VIAL IVPUSH STA (19:21)
[2023-09-07] MEDS ORDERED: DEXTROSE 5%-0.45% SALINE 1,000 ML IV SCH (19:45)
[2023-09-07] MEDS ORDERED: ALPRAZolam 0.25 MG TABLET PO PRN (20:30)
[2023-09-07] MEDS: ENOXAPARIN NA (PORCINE) 40 MG/0.4 ML DISP.SYRIN SQ SCH (20:41)
[2023-09-07] MEDS ORDERED: FLUoxetine HCL 20 MG CAPSULE PO SCH (20:45)
[2023-09-07] MEDS ORDERED: LAMOTRIGINE 100 MG, LAMOTRIGINE 25 MG PO SCH (21:00)
[2023-09-07] MEDS ORDERED: MAGNESIUM SULF 50% (8.12 MEQ/2 ML-1 GM VIAL) IVPB ONE ×2 (21:00→23:09)
[2023-09-07] MEDS: ATORVASTATIN CA 20 MG TABLET (FP) PO SCH (21:53)
[2023-09-07] MEDS ORDERED: FUROSEMIDE 40 MG/4 ML INJECTABLE VIAL IVPUSH ONE (23:08)
[2023-09-07] MEDS ORDERED: FUROSEMIDE 40 MG/4 ML INJECTABLE VIAL ONE (23:09)
[2023-09-07] MEDS ORDERED: METOPROLOL TARTRATE 5 MG/5 ML VIAL IVPUSH ONE (23:09)
[2023-09-07] MEDS ORDERED: METOPROLOL TARTRATE 5 MG/5 ML VIAL ONE (23:12)
[2023-09-07] MEDS ORDERED: METOPROLOL TARTRATE 5 MG/5 ML VIAL IVPUSH PRN (23:30)
[2023-09-07] MEDS ORDERED: MAGNESIUM SULF 50% (8.12 MEQ/2 ML-1 GM VIAL) ONE (23:51)
[2023-09-08] MEDS: PIPERACILLIN/TAZOB 3.375 GM 3.375 GM in DEXTROSE 5%-WATER - 50 ML IVPB SCH ×2 (01:31→12:36)
[2023-09-08] MEDS ORDERED: FUROSEMIDE 40 MG/4 ML INJECTABLE VIAL IVPUSH ONE (01:46)
[2023-09-08] MEDS ORDERED: ACETAMINOPHEN 1000 MG/100 ML BAG IVPB PRN (04:31)
[2023-09-08] MEDS ORDERED: VANCOMYCIN 500 MG in DEXTROSE 5%-WATER - 100 ML IVPB SCH (05:30)
[2023-09-08 05:35] LABS: ARTERIAL BLD GAS O2 SATURATION 94.3 % (95-98); ARTERIAL BLOOD GAS BASE EXCESS 6.9 mmol/L (-2-2); ARTERIAL BLOOD GAS PO2 68.7 mmHg (80-100); ARTERIAL BLOOD GAS pH 7.448 (7.350-7.450)
[2023-09-08] MEDS ORDERED: VANCOMYCIN 500 MG in DEXTROSE 5%-WATER 100 ML IVPB SCH (06:00)
[2023-09-08] MEDS ORDERED: ACETAMINOPHEN 325 MG TABLET (FP) PO PRN (06:12)
[2023-09-08 06:25] VITALS: TEMP 100.9
[2023-09-08] MEDS ORDERED: DEXMEDETOMIDINE PREMIX 400 MCG/100 ML BAG IVPB SCH (06:30)
[2023-09-08 08:18] LABS: LACTIC ACID 3.4 mmol/L (0.4-2.0)
[2023-09-08 08:23] LABS: HEMATOCRIT 36.2 % (32.4-45.2); HEMOGLOBIN 12.2 GM/dL (10.7-15.3); MCH 28.6 pg (25.7-33.7); MCHC 33.6 g/dl (32.0-36.0); MEAN CELL VOLUME 85.1 fl (80-96); MEAN PLT VOLUME 8.2 fl (7.5-11.1); PLATELET COUNT 266 10^3/uL (134-434); RBC 4.26 M/mm3 (3.60-5.2); RDW 14.1 % (11.6-15.6)
[2023-09-08 08:26] LABS: CHLORIDE 105 mmol/L (98-107); SODIUM 147 mmol/L (136-145)
[2023-09-08] MEDS ORDERED: VASopressin 20 UNITS/ML VIAL IV ONE (08:34)
[2023-09-08 08:38] LABS: CALCIUM 8.7 mg/dL (8.5-10.1)
[2023-09-08 08:39] LABS: ALBUMIN 1.2 g/dl (3.4-5.0); BLOOD UREA NITROGEN 11.7 mg/dL (7-18); CO2 32 mmol/L (21-32); GLUCOSE,RANDOM 105 mg/dL (74-106)
[2023-09-08 08:40] LABS: CREATININE 0.5 mg/dL (0.55-1.3); SGOT/AST 28 U/L (15-37); SGPT/ALT 14 U/L (13-61)
[2023-09-08] MEDS: ALBUTEROL SO4 2.5/IPRATROPIUM 0.5 INH SOL 3 ML VIAL.NEB. NEB SCH (08:40)
[2023-09-08 08:41] LABS: BILIRUBIN,TOTAL 0.8 mg/dL (0.2-1)
[2023-09-08] MEDS ORDERED: RAPID SEQUENCE INTUBATION KIT NR ONE (08:41)
[2023-09-08 08:42] LABS: TOT PROT 4.7 g/dl (6.4-8.2)
[2023-09-08 08:43] LABS: ALK PHOS 71 U/L (45-117)
[2023-09-08] MEDS ORDERED: LACTATED RINGERS SOLUTION 1,000 ML/1,000 ML INFUS.BAG IV ONE (08:43)
[2023-09-08] MEDS ORDERED: VASopressin 40 UNITS/100 ML BAG IV SCH (08:45)
[2023-09-08 08:46] LABS: ANION GAP 9 mmol/L (4-13); POTASSIUM 2.8 mmol/L (3.5-5.1)
[2023-09-08] MEDS ORDERED: FENTANYL NS IVPB 0 MCG/0 ML BAG IVPB ONE (09:26)
[2023-09-08] MEDS ORDERED: MIDAZOLAM IN 0.9 % SOD.CHLORID 0 MG/0 ML PLAST..BAG ONE (09:27)
[2023-09-08] MEDS ORDERED: EPINEPHrine/PF 1 MG/1 ML (1:1,000) AMPULE ONE (09:30)
[2023-09-08] MEDS ORDERED: LACTATED RINGERS SOLUTION 1,000 ML/1,000 ML INFUS.BAG IV STA (09:41)
[2023-09-08 09:54] LABS: ARTERIAL BLD GAS O2 SATURATION 71.7 % (95-98); ARTERIAL BLOOD GAS BASE EXCESS 0.5 mmol/L (-2-2); ARTERIAL BLOOD GAS PO2 46.1 mmHg (80-100)
[2023-09-08] MEDS ORDERED: NOREPINEPHRINE BITARTRATE 4 MG/4 ML ML IV ONE (09:54)
[2023-09-08 09:58] LABS: VENT MODE AC; VENT RATE 24
[2023-09-08] MEDS ORDERED: LAMOTRIGINE 100 MG, LAMOTRIGINE 50 MG PO SCH (10:00)
[2023-09-08] MEDS ORDERED: OSELTAMIVIR PHOSPHATE 75 MG CAPSULE PO SCH (10:00)
[2023-09-08] MEDS ORDERED: LAMOTRIGINE 100 MG, LAMOTRIGINE 25 MG PO SCH (10:00)
[2023-09-08] MEDS ORDERED: PATIENT'S OWN MEDICATION (NON-FORMULARY) (Lamotrigine [Lamictal] 150 MG Tablet) PO SCH (10:00)
[2023-09-08] MEDS ORDERED: MUPIROCIN 2% TOPICAL OINTMENT FOR DECOLONIZATION NS SCH (10:00)
[2023-09-08] MEDS ORDERED: FLUoxetine HCL 20 MG CAPSULE PO SCH (10:00)
[2023-09-08] MEDS ORDERED: LACTATED RINGERS SOLUTION 1,000 ML with POTASSIUM CHLORIDE 20 MEQ IV ONE (10:00)
[2023-09-08] MEDS ORDERED: POTASSIUM CHLORIDE ORAL LIQUID 20 MEQ/15 ML GT ONE (10:00)
[2023-09-08] MEDS ORDERED: EPINEPHrine 1:10,000 (P-F SYR) 1 MG/10 ML DISP.SYRIN ONE ×2 (10:09→10:15)
[2023-09-08] MEDS ORDERED: CALCIUM CHLORIDE 1 GM/10 ML *DISP.SYRIN ONE (10:16)
[2023-09-08] MEDS ORDERED: DOPAMINE 400 MG/D5W - 400,000 MCG/250 ML INFUS.BAG IVPB ONE (10:24)
[2023-09-08 11:39] LABS: CHLORIDE 109 mmol/L (98-107); SODIUM 150 mmol/L (136-145)
[2023-09-08 11:42] LABS: ANION GAP 16 mmol/L (4-13); BLOOD UREA NITROGEN 15.1 mg/dL (7-18); CO2 26 mmol/L (21-32); MAGNESIUM 2.5 mg/dL (1.8-2.4)
[2023-09-08 11:45] LABS: CREATININE 0.9 mg/dL (0.55-1.3); SGOT/AST 295 U/L (15-37); SGPT/ALT 78 U/L (13-61)
[2023-09-08 11:47] LABS: BILIRUBIN,TOTAL 0.5 mg/dL (0.2-1)
[2023-09-08 11:48] LABS: ALK PHOS 53 U/L (45-117)
[2023-09-08 11:51] LABS: LACTIC ACID 15.8 mmol/L (0.4-2.0)
[2023-09-08 12:05] LABS: ARTERIAL BLOOD GAS BASE EXCESS -14.5 mmol/L (-2-2)
[2023-09-08 12:07] LABS: ALBUMIN 0.7 g/dl (3.4-5.0); CALCIUM 12.3 mg/dL (8.5-10.1); GLUCOSE,RANDOM 6 mg/dL (74-106); PHOSPHOROUS > 9.0 mg/dL (2.5-4.9)
[2023-09-08 12:08] LABS: ARTERIAL BLOOD GAS pH 6.907 (7.350-7.450)
[2023-09-08 12:12] LABS: HEMATOCRIT 27.1 % (32.4-45.2); HEMOGLOBIN 8.8 GM/dL (10.7-15.3); MCH 29.4 pg (25.7-33.7); MCHC 32.3 g/dl (32.0-36.0); MEAN CELL VOLUME 90.9 fl (80-96); MEAN PLT VOLUME 8.3 fl (7.5-11.1); PLATELET COUNT 193 10^3/uL (134-434); RBC 2.99 M/mm3 (3.60-5.2); RDW 14.9 % (11.6-15.6); WHITE BLOOD COUNT 8.1 K/mm3 (4.0-10.0)
[2023-09-08] MEDS ORDERED: NOREPINEPHRINE 0.9 % NACL 8 MG/250 ML BAG IVPB SCH (12:15)
[2023-09-08] MEDS ORDERED: SODIUM BICARBONATE 8.4% - 150 MEQ in DEXTROSE 5%-WATER - 950 ML IVPB SCH (12:30)
[2023-09-08] MEDS ORDERED: SODIUM BICARBONATE 8.4% - 75 MEQ in DEXTROSE 5%-WATER - 1,000 ML IV SCH (12:30)
[2023-09-08 12:31] VITALS: BP 74/23; PULSE 120; RESP 44
[2023-09-08] MEDS: ENOXAPARIN NA (PORCINE) 40 MG/0.4 ML DISP.SYRIN SQ SCH (12:38)
[2023-09-08] MEDS ORDERED: SODIUM BICARBONATE 8.4% 50 MEQ/50 ML DISP.SYRIN ONE (13:05)
[2023-09-08 13:10] LABS: ANISOCYTOSIS 1+; MACROCYTOSIS 0
[2023-09-08] MEDS ORDERED: CHLORHEXIDINE GLUCONATE 4% CLEANSER FOR DECOLONIZATION TP SCH (22:00)
[2023-09-08] MEDS ORDERED: ATORVASTATIN CA 20 MG TABLET (FP) PO SCH (22:00)
== END 2023-09-08 19:00 | disposition expired | DRG 139 ==
LOC: JER 09:54 → JERBED 11:45 → J6S 18:48 → J4S 09-05 15:50 → JICU 09-08 05:56
PROVIDERS: ADMIT Internal Medicine; ATTEND Internal Medicine
PROC: 4A133B1 Monitoring of Arterial Pressure, Peripheral, Percutaneous Approach (ICD-10-PCS; principal; 2023-09-08)
PROC: 4A133J1 Monitoring of Arterial Pulse, Peripheral, Percutaneous Approach (ICD-10-PCS; 2023-09-08)
PROC: 0BH17EZ Insertion of Endotracheal Airway into Trachea, Via Natural or Artificial Opening (ICD-10-PCS; 2023-09-08)
PROC: 5A1935Z Respiratory Ventilation, Less than 24 Consecutive Hours (ICD-10-PCS; 2023-09-08)
PROC: 0W9930Z Drainage of Right Pleural Cavity with Drainage Device, Percutaneous Approach (ICD-10-PCS; 2023-09-08)
PROC: 05HM33Z Insertion of Infusion Device into Right Internal Jugular Vein, Percutaneous Approach (ICD-10-PCS; 2023-09-08)
PROC: B543ZZA Ultrasonography of Right Jugular Veins, Guidance (ICD-10-PCS; 2023-09-08)
PROC: 5A12012 Performance of Cardiac Output, Single, Manual (ICD-10-PCS; 2023-09-08)
DX: J10.00 Influenza due to other identified influenza virus with unspecified type of pneumonia (principal); E78.5 Hyperlipidemia, unspecified; E43 Unspecified severe protein-calorie malnutrition; E87.6 Hypokalemia; J93.0 Spontaneous tension pneumothorax; R79.89 Other specified abnormal findings of blood chemistry; F13.20 Sedative, hypnotic or anxiolytic dependence, uncomplicated; E88.09 Other disorders of plasma-protein metabolism, not elsewhere classified; R00.0 Tachycardia, unspecified; F41.8 Other specified anxiety disorders; J80 Acute respiratory distress syndrome; R41.82 Altered mental status, unspecified; J90 Pleural effusion, not elsewhere classified; I46.9 Cardiac arrest, cause unspecified; R64 Cachexia; Z68.1 Body mass index [BMI] 19.9 or less, adult
CPT/HCPCS: 0241U-QW; 36415; 36600; 71045-TC-FY; 71046-TC-FY; 80053; 81003; 82550; 82803; 82962; 83036; 83605; 83735; 83880; 84100; 84443; 84484; 85025; 85027; 87040; 87086; 93005; 93010; 93306-TC; 94002; 94640; 99285-25; J3490